=== PATIENT | male | born 1945 | race Hispanic/Latino ===

== ENCOUNTER 2024-10-07 09:27 | Inpatient (IN) | payer MEDICARE, OTHER, SELFPAY ==
[2024-10-07] MEDS ORDERED: Ipratropium/Albuterol 3 ML NEB ONE (10:21)
[2024-10-07] MEDS ORDERED: Pantoprazole 40 MG VIAL ONE ×2 (10:21→10:23)
[2024-10-07 10:53] LABS: INR-International Normal Ratio 1.2
[2024-10-07 10:54] LABS: PTT 46.5 sec (22.9-36.1)
[2024-10-07 10:57] LABS: #Basophils Less than 0.03 10x3/uL (0.0-0.2); #Eosinophils Less than 0.03 10x3/uL (0.0-0.7); %Basophils 0.2 % (0.0-1.0); %Eosinophils 0.2 % (0.0-10.0); %Lymphocytes 14.7 % (21.0-51.0); %Monocytes 5.6 % (0.0-10.0); %Neutrophils 78.9 % (42.0-75.0); Hematocrit 30.9 % (42.0-52.0); Hemoglobin 9.6 g/dL (14.0-18.0); Mean Corpuscular HGB CONC 31.1 g/dL (32.0-36.0); Mean Corpuscular Hemoglobin 27.4 pg (27.0-31.0); Platelet Count 86 10x3/uL (130-400); RBC Distribution Width 18.6 % (11.5-14.5); Red Blood Cell (RBC) Count 3.51 mill/uL (4.70-6.10)
[2024-10-07 11:04] LABS: ALT (SGPT) 26 U/L (8-55); AST (SGOT) 55 U/L (5-34); Albumin 2.4 g/dL (3.4-4.8); Alkaline Phosphatase 89 U/L (40-110); Anion Gap 20 mmol/L (10-20); BUN (Urea Nitrogen) 41 mg/dL (8.4-25.7); Bilirubin, Total 0.4 mg/dL (0.2-1.2); Calc. Creatinine Clearance 0 mL/min (70-130); Calcium 8.1 mg/dL (7.8-10.44); Carbon Dioxide 21 mmol/L (23-31); Chloride 96 mmol/L (98-107); Estimated GFR 10; Globulin 3.6 g/dL (2.4-3.5); Glucose 135 mg/dL (83-110); Lipase 15 U/L (8-78); Magnesium 2.7 mg/dL (1.6-2.6); Potassium 4.4 mmol/L (3.5-5.1); Sodium 133 mmol/L (136-145)
[2024-10-07 11:51] LABS: Troponin I 0.027 ng/mL (< 0.028)
[2024-10-07 12:15] LABS: Burr Cells MODERATE= 6-15 cells HPF (0-1); Hypochromia SLIGHT = 6-15 cells HPF (0-5); Platelet Adequacy Comment Platelets Decreased; Poikilocytosis SLIGHT = 6-15 cells HPF (0-5); Polychromasia SLIGHT = 2-3 cells HPF (0-2); Schistocytes SLIGHT = 2-5 cells HPF (0-1)
[2024-10-07] MEDS ORDERED: Dextrose 5% in Water 1,000 ML IV PRN (12:51)
[2024-10-07] MEDS ORDERED: Glucagon 1 MG/ML KIT IM PRN (12:51)
[2024-10-07] MEDS ORDERED: Ondansetron ODT 4 MG TAB PO PRN (12:51)
[2024-10-07] MEDS ORDERED: Insulin Lispro 100 UNIT/ML 10 ML VIAL SC PRN ×2 (12:51)
[2024-10-07] MEDS ORDERED: Ondansetron PF 4 MG/2 ML Vial IVP PRN (12:51)
[2024-10-07] MEDS: Albumin 25% 25 GM (100 mL) BOT IVPB SCH ×2 (16:16)
[2024-10-07 18:24] LABS: Hemoglobin 8.7 g/dL (14.0-18.0)
[2024-10-07 18:51] LABS: Lactic Acid 1.82 mmol/L (0.5-2.2)
[2024-10-07 19:09] LABS: Hep B Core Total Index 0.16 S/CO (0-0.79)
[2024-10-07 19:13] LABS: Hep B Core Total Ab NONREACTIVE (NonReactive)
[2024-10-07 19:17] LABS: HBsAg Index 0.34 S/CO (0-0.99); Hep B Surf Ag NONREACTIVE S/CO (NonReactive)
[2024-10-07 19:39] LABS: HBSAB Concentration Less than 8.00 mIU/mL; Hep B Surf AB NONREACTIVE (NonReactive)
[2024-10-07 20:11] LABS: Hep C IgG Ab Reflex HepC Qnt S/CO (NonReactive); Hep C Index 5.22 S/CO (0-0.79)
[2024-10-07] MEDS: Pantoprazole 40 MG VIAL IVP SCH (21:02)
[2024-10-07 21:07] LABS: Hematocrit 27.9 % (42.0-52.0); Hemoglobin 8.8 g/dL (14.0-18.0)
[2024-10-07] MEDS: Acetaminophen 500 MG TAB PO PRN (22:16)
[2024-10-07] MEDS: HYDROcodone/Acetaminophen 7.5/325 mg Tablet PO PRN (23:47)
[2024-10-08 01:05] LABS: Hematocrit 27.6 % (42.0-52.0); Hemoglobin 8.8 g/dL (14.0-18.0)
[2024-10-08 05:41] VITALS: BMI 28.2
[2024-10-08 05:46] LABS: #Basophils Less than 0.03 10x3/uL (0.0-0.2); #Eosinophils Less than 0.03 10x3/uL (0.0-0.7); %Basophils 0.2 % (0.0-1.0); %Eosinophils 0.3 % (0.0-10.0); %Lymphocytes 20.8 % (21.0-51.0); %Monocytes 11.8 % (0.0-10.0); %Neutrophils 66.6 % (42.0-75.0); Hemoglobin 8.5 g/dL (14.0-18.0); Mean Corpuscular HGB CONC 32.7 g/dL (32.0-36.0); Mean Corpuscular Hemoglobin 28.4 pg (27.0-31.0); Mean Platelet Volume 10.8 fL (7.4-10.4); Platelet Count 50 10x3/uL (130-400); RBC Distribution Width 17.7 % (11.5-14.5); Red Blood Cell (RBC) Count 2.99 mill/uL (4.70-6.10)
[2024-10-08 05:54] LABS: ALT (SGPT) 44 U/L (8-55); AST (SGOT) 112 U/L (5-34); Alkaline Phosphatase 63 U/L (40-110); Anion Gap 17 mmol/L (10-20); BUN (Urea Nitrogen) 46 mg/dL (8.4-25.7); Bilirubin, Total 0.5 mg/dL (0.2-1.2); Calc. Creatinine Clearance 10 mL/min (70-130); Calcium 7.8 mg/dL (7.8-10.44); Carbon Dioxide 23 mmol/L (23-31); Chloride 96 mmol/L (98-107); Estimated GFR 9; Globulin 2.2 g/dL (2.4-3.5); Glucose 99 mg/dL (83-110); Potassium 4.4 mmol/L (3.5-5.1); Protein, Total 5.2 g/dL (5.8-8.1); Sodium 132 mmol/L (136-145)
[2024-10-08] MEDS ORDERED: Propofol 1,000 MG/100 ML VIAL IV ONE (06:34)
[2024-10-08] MEDS ORDERED: Lidocaine 1% (PF) 30 ML VIAL ONE (06:35)
[2024-10-08] MEDS ORDERED: Heparin 10,000 UNITS/ 10 ML VIAL SLOW IVP SCH (10:45)
[2024-10-08] MEDS ORDERED: Heparin 10,000 UNITS/ 10 ML VIAL ONE (11:17)
[2024-10-08 12:30] LABS: Hematocrit 28.7 % (42.0-52.0); Platelet Count 52 10x3/uL (130-400)
[2024-10-08] MEDS: Heparin 25,000 units/D5W 500 ML IVPB SCH (16:42)
[2024-10-08 23:00] LABS: #Basophils Less than 0.03 10x3/uL (0.0-0.2); #Eosinophils Less than 0.03 10x3/uL (0.0-0.7); %Basophils 0.3 % (0.0-1.0); %Eosinophils 0.3 % (0.0-10.0); %Lymphocytes 15.8 % (21.0-51.0); %Monocytes 9.3 % (0.0-10.0); %Neutrophils 73.7 % (42.0-75.0); Hematocrit 30.3 % (42.0-52.0); Hemoglobin 9.7 g/dL (14.0-18.0); Mean Corpuscular Hemoglobin 28.2 pg (27.0-31.0); Mean Corpuscular Volume 88.1 fL (78.0-98.0); Mean Platelet Volume 12.6 fL (7.4-10.4); Platelet Count 41 10x3/uL (130-400); RBC Distribution Width 17.9 % (11.5-14.5); Red Blood Cell (RBC) Count 3.44 mill/uL (4.70-6.10)
[2024-10-09 08:21] LABS: #Basophils Less than 0.03 10x3/uL (0.0-0.2); %Basophils 0.1 % (0.0-1.0); %Eosinophils 0.4 % (0.0-10.0); %Lymphocytes 17.4 % (21.0-51.0); %Monocytes 7.9 % (0.0-10.0); %Neutrophils 73.8 % (42.0-75.0); Hematocrit 30.5 % (42.0-52.0); Hemoglobin 9.4 g/dL (14.0-18.0); Mean Corpuscular HGB CONC 30.8 g/dL (32.0-36.0); Mean Corpuscular Volume 90.8 fL (78.0-98.0); Platelet Count 54 10x3/uL (130-400); Red Blood Cell (RBC) Count 3.36 mill/uL (4.70-6.10)
[2024-10-09 08:34] LABS: Anion Gap 17 mmol/L (10-20); BUN (Urea Nitrogen) 33 mg/dL (8.4-25.7); Calc. Creatinine Clearance 15 mL/min (70-130); Calcium 8.1 mg/dL (7.8-10.44); Carbon Dioxide 25 mmol/L (23-31); Chloride 97 mmol/L (98-107); Estimated GFR 14; Glucose 198 mg/dL (83-110); Potassium 3.8 mmol/L (3.5-5.1); Sodium 135 mmol/L (136-145)
[2024-10-09 12:40] LABS: PTT Greater than 250.0 sec (22.9-36.1)
[2024-10-09 14:06] LABS: PTT Greater than 250.0 sec (22.9-36.1)
[2024-10-09] MEDS: Morphine 2 MG/ML VIAL SLOW IVP PRN (23:51)
[2024-10-10 06:23] LABS: Anion Gap 19 mmol/L (10-20); BUN (Urea Nitrogen) 40 mg/dL (8.4-25.7); Calc. Creatinine Clearance 12 mL/min (70-130); Calcium 8.2 mg/dL (7.8-10.44); Carbon Dioxide 21 mmol/L (23-31); Chloride 99 mmol/L (98-107); Estimated GFR 11; Glucose 201 mg/dL (83-110); Potassium 5.1 mmol/L (3.5-5.1); Sodium 134 mmol/L (136-145)
[2024-10-10 06:35] LABS: #Basophils Less than 0.03 10x3/uL (0.0-0.2); #Eosinophils Less than 0.03 10x3/uL (0.0-0.7); %Basophils 0.1 % (0.0-1.0); %Eosinophils 0.1 % (0.0-10.0); %Lymphocytes 10.6 % (21.0-51.0); %Monocytes 11.2 % (0.0-10.0); %Neutrophils 77.6 % (42.0-75.0); Hematocrit 32.1 % (42.0-52.0); Mean Corpuscular HGB CONC 31.2 g/dL (32.0-36.0); Mean Corpuscular Hemoglobin 28.4 pg (27.0-31.0); Mean Corpuscular Volume 91.2 fL (78.0-98.0); Mean Platelet Volume 12.1 fL (7.4-10.4); Platelet Count 51 10x3/uL (130-400); RBC Distribution Width 18.9 % (11.5-14.5); Red Blood Cell (RBC) Count 3.52 mill/uL (4.70-6.10)
[2024-10-10 07:30] LABS: Iron 59 ug/dL (65-175); Iron Binding Capacity, Total 120 mcg/dL (261-462)
[2024-10-10] MEDS: Morphine ER 15 MG TAB PO SCH (13:02)
[2024-10-10 23:12] LABS: Hep C PCR-Quant HCV Not Detected IU/mL (.)
[2024-10-11] MEDS: Dextrose 50% Abboject 50 ML SYRINGE SLOW IVP PRN (03:58)
[2024-10-11 05:36] LABS: Anion Gap 27 mmol/L (10-20); BUN (Urea Nitrogen) 33 mg/dL (8.4-25.7); Calc. Creatinine Clearance 15 mL/min (70-130); Calcium 8.1 mg/dL (7.8-10.44); Carbon Dioxide 14 mmol/L (23-31); Chloride 100 mmol/L (98-107); Estimated GFR 14; Glucose 79 mg/dL (83-110); Potassium 4.3 mmol/L (3.5-5.1); Sodium 137 mmol/L (136-145)
[2024-10-11 07:50] LABS: Anisocytosis SLIGHT = 6-15 cells HPF (0-5); Band 45 % (5-11); Burr Cells MODERATE= 6-15 cells HPF (0-1); Hematocrit 33.5 % (42.0-52.0); Hemoglobin 10.1 g/dL (14.0-18.0); Large Platelets 0.9 % (0-5); Lymphocytes 4 % (21-51); Mean Corpuscular HGB CONC 30.1 g/dL (32.0-36.0); Mean Corpuscular Hemoglobin 28.3 pg (27.0-31.0); Mean Corpuscular Volume 93.8 fL (78.0-98.0); Mean Platelet Volume 12.8 fL (7.4-10.4); Metamyelocyte 15 % (0-0); Monocytes 3 % (0-10); Neutrophil 31 % (42-75); Nucleated RBC (Manual Ct) 5 % (0); Platelet Adequacy Comment Significant Decrease; Platelet Count 25 10x3/uL (130-400); Poikilocytosis MODERATE=16-30 cells HPF (0-5); Polychromasia MODERATE = 3-4 cells HPF (0-2); RBC Distribution Width 19.6 % (11.5-14.5); Reactive Lymphocytes 3 % (0-10); Red Blood Cell (RBC) Count 3.57 mill/uL (4.70-6.10); Schistocytes SLIGHT = 2-5 cells HPF (0-1); Smudge Cells 5.3 %; Toxic Granulation MODERATE; Vacuoles MODERATE
[2024-10-11 11:05] VITALS: BMI 28.0
[2024-10-11] MEDS: Hydrocortisone Sod Succ/PF 100 mg/2 ml Vial IVP SCH (13:58)
[2024-10-11 16:07] VITALS: BP 93/57; TEMP 97.2
== END 2024-10-11 16:13 | disposition hospice, home (50) | DRG 377 ==
LOC: ERS 09:27 → IMCU/EMU 13:37 → T4-A 10-11 00:08
PROVIDERS: ADMIT Family Medicine; ATTEND Internal Medicine
PROC: 30233N1 Transfusion of Nonautologous Red Blood Cells into Peripheral Vein, Percutaneous Approach (ICD-10-PCS; 2024-10-07)
PROC: 0DB98ZX Excision of Duodenum, Via Natural or Artificial Opening Endoscopic, Diagnostic (ICD-10-PCS; principal; 2024-10-08)
PROC: 0DB68ZX Excision of Stomach, Via Natural or Artificial Opening Endoscopic, Diagnostic (ICD-10-PCS; 2024-10-08)
PROC: 0DB58ZX Excision of Esophagus, Via Natural or Artificial Opening Endoscopic, Diagnostic (ICD-10-PCS; 2024-10-08)
DX: K26.4 Chronic or unspecified duodenal ulcer with hemorrhage (principal); K20.91 Esophagitis, unspecified with bleeding; N18.6 End stage renal disease; D62 Acute posthemorrhagic anemia; I24.0 Acute coronary thrombosis not resulting in myocardial infarction; E87.1 Hypo-osmolality and hyponatremia; I12.0 Hypertensive chronic kidney disease with stage 5 chronic kidney disease or end stage renal disease; E44.0 Moderate protein-calorie malnutrition; E87.20 Acidosis, unspecified; K29.71 Gastritis, unspecified, with bleeding; E11.22 Type 2 diabetes mellitus with diabetic chronic kidney disease; E11.649 Type 2 diabetes mellitus with hypoglycemia without coma; Z66 Do not resuscitate; E88.09 Other disorders of plasma-protein metabolism, not elsewhere classified; Z79.01 Long term (current) use of anticoagulants
CPT/HCPCS: 36415; 36416; 36430; 71045; 76705; 80048; 80053; 82105; 82274; 82728; 83540; 83550; 83605; 83690; 83735; 84484; 85025; 85610; 85730; 86704; 86706; 86803; 86850; 86900; 86901; 87040; 87340; 87428; 87522; 88305; 88342; 90935; 93005; 93306; 93970; 94760; 96374; 97139; G0257; J1644; J1720; J2272; J2470; J2704; J7620; J7999; P9016; P9047